=== PATIENT | female | born 1995 ===

== ENCOUNTER 2023-12-12 18:50 | Emergency (ER) | payer BC ==
[2023-12-12] MEDS: SODIUM CHLORIDE 0.9% 1,000 ML IV STA (19:47)
[2023-12-12 19:48] VITALS: RESP 18
--- NOTE | 2023-12-12 19:51 | ED ---
Seizure HPI - General Chief Complaint: Seizure Stated Complaint: Seizure Time Seen by Provider: 12/12/23 19:11 Source: patient, family, EMS Mode of arrival: EMS Limitations: language barrier - History of Present Illness Initial Comments: 28-year-old female with history of seizure disorder presenting with chief complaint of seizure. 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 States that the patient was complaining of a headache earlier today. This tends to be a sign that she may have a seizure. She took ibuprofen and went to go lay down. The was laying beside her when she started to seize. Patient does feel quite fatigued since the seizure. states that this is normal for her. However the patient is complaining of a severe headache, which is not normal for her. States that she may have a milder headache afterwards but this is much more intense than she is used to. It is generalized. Admits to nausea and dizziness. Denies numbness, tingling, weakness. Admits to muscle soreness. - Related Data Allergies Allergy/AdvReac Type Severity Reaction Status Date / Time Penicillins Allergy Intermediate Anaphylaxis Verified 12/12/23 19:44 Review of Systems ROS Statement: Those systems with pertinent positive or pertinent negative responses have been documented in the HPI. ROS Other: All systems not noted in ROS Statement are negative. Past Medical History Past Medical History: Seizure Disorder Additional Past Medical History / Comment(s): genital herpes History of Any Multi-Drug Resistant Organisms: None Reported Past Surgical History: Tubal Ligation Past Psychological History: No Psychological Hx Reported Smoking Status: Current every day smoker Past Alcohol Use History: Rare Past Drug Use History: None Reported General Exam Limitations: language barrier General appearance: alert, lethargic Head exam: Present: atraumatic, normocephalic Eye exam: Present: normal appearance, PERRL, EOMI Neck exam: Present: normal inspection Respiratory exam: Present: normal lung sounds bilaterally. Absent: respiratory distress, wheezes, rales, rhonchi, stridor Cardiovascular Exam: Present: regular rate, normal rhythm, normal heart sounds. Absent: systolic murmur, diastolic murmur, rubs, gallop, clicks Extremities exam: Present: normal inspection, full ROM Neurological exam: Present: alert, oriented X3 Expanded Cranial nerves: EOM's Intact: Normal Skin exam: Present: warm, dry Course Vital Signs 12/12/23 12/12/23 18:53 23:01 Temperature 98.2 F 98.1 F Pulse Rate 77 75 Respiratory 18 18 Rate Blood Pressure 128/91 113/70 O2 Sat by Pulse 98 100 Oximetry Medical Decision Making - Medical Decision Making Was pt. sent in by a medical professional or institution (MAX Daniels, EDUCATIONAL TECHNOLOGY COORDINATOR, urgent care, hospital, or skilled nursing...) When possible be specific @ -No Did you speak to anyone other than the patient for history (EMS, parent, family, police, friend...)? What history was obtained from this source @ -No Did you review nursing and triage notes (agree or disagree)? Why? @ -I reviewed and agree with nursing and triage notes Were old charts reviewed (outside hosp., previous admission, EMS record, old EKG, old radiological studies, urgent care reports/EKG's, skilled nursing records)? Report findings @ -No old charts were reviewed Differential Diagnosis (chest pain, altered mental status, abdominal pain women, abdominal pain men, vaginal bleeding, weakness, fever, dyspnea, syncope, headache, dizziness, GI bleed, back pain, seizure, CVA, palpatations, mental health, musculoskeletal)? @ -MDM Differential Seizure: Recurrent seizure disorder, febrile seizure, alcohol withdrawal, stimulants, meningitis, encephalitis, intercranial hemorrhage, intracranial tumor, stroke, eclampsia, thyrotoxicosis, hypocalcemia, hyponatremia, hypernatremia, hypomagnesemia, psychogenic this is not meant to be an all-inclusive list EKG interpreted by me (3pts min.). @ -EKG shows sinus bradycardia ventricular rate 54. DC interval 138. QRS 90. QT 438. QTc 423. X-rays interpreted by me (1pt min.). @ -None done CT interpreted by me (1pt min.). @ -CT of the brain shows no acute intracranial process U/S interpreted by me (1pt. min.). @ -None done What testing was considered but not performed or refused? (CT, X-rays, U/S, labs)? Why? @ -None What meds were considered but not given or refused? Why? @ -None Did you discuss the management of the patient with other professionals (professionals i.e. MAX Daniels, EDUCATIONAL TECHNOLOGY COORDINATOR, lab, RT, psych nurse, social security benefits interviewer, fire assistant, teacher, air force senior officer, binder caser)? Give summary @ -No Was smoking cessation discussed for >3mins.? @ -No Was critical care preformed (if so, how long)? @ -No Were there social determinants of health that impacted care today? How? (Homelessness, low income, unemployed, alcoholism, drug addiction, transportation, low edu. Level, literacy, decrease access to med. care, [facility], rehab)? @ -No Was there de-escalation of care discussed even if they declined (Discuss DNR or withdrawal of care, Hospice)? DNR status @ -No What co-morbidities impacted this encounter? (DM, HTN, Smoking, COPD, CAD, Cancer, CVA, ARF, Chemo, Hep., AIDS, mental health diagnosis, sleep apnea, morbid obesity)? @ -None Was patient admitted / discharged? Hospital course, mention meds given and route, prescriptions, significant lab abnormalities, going to OR and other perti nent info. @ -28-year-old female with history of seizure disorder presenting for evaluation post seizure. Patient's was concerned that she was complaining of a severe headache afterwards which is not normal for her. Patient only speaks Gambian, serves as parking manager. Labs are obtained which require no further action. Keppra level is sent out. Negative CT of the brain. Patient was given 1 g of Keppra IV. She was also given Toradol Reglan and IV fluids. On reassessment she reports improvement in her headache. Patient has been educated on today's findings. states that they are currently trying to schedule an appointment with a neurologist as she recently moved to the area. Discharged home. Follow-up with PCP. Report back to ER with any new or worsening symptoms. Discussed return parameters and answered all questions. Patient conveyed verbal understanding and agreed to the plan. I discussed this case in detail with my attending Dr. Urban Undiagnosed new problem with uncertain prognosis? @ -No Drug Therapy requiring intensive monitoring for toxicity (Heparin, Nitro, Insulin, Cardizem)? @ -No Were any procedures done? @ -No Diagnosis/symptom? @ -Recurrent seizure disorder Acute, or Chronic, or Acute on Chronic? @ -Acute on chronic Uncomplicated (without systemic symptoms) or Complicated (systemic symptoms)? @ -complicated Side effects of treatment? @ -No Exacerbation, Progression, or Severe Exacerbation? @ -No Poses a threat to life or bodily function? How? (Chest pain, [place], [place], pneumonia, PE, COPD, DKA, ARF, appy, cholecystitis, CVA, Diverticulitis, Homicidal, Suicidal, threat to staff... and all critical care pts) @ -Low likelihood - Lab Data Result diagrams: 12/12/23 21:07 12/12/23 21:07 Lab Results 12/12/23 12/12/23 12/12/23 Range/Units 21:07 21:07 21:07 WBC 11.4 H (3.8-10.6) k/uL RBC 3.91 (3.80-5.40) m/uL Hgb 11.9 (11.4-16.0) gm/dL Hct 35.2 (34.0-46.0) % MCV 90.0 (80.0-100.0) fL MCH 30.5 (25.0-35.0) pg MCHC 33.9 (31.0-37.0) g/dL RDW 14.1 (11.5-15.5) % Plt Count 250 (150-450) k/uL MPV 9.1 Neutrophils % 63 % Lymphocytes % 29 % Monocytes % 5 % Eosinophils % 1 % Basophils % 0 % Neutrophils # 7.2 (1.3-7.7) k/uL Lymphocytes # 3.3 (1.0-4.8) k/uL Monocytes # 0.5 (0-1.0) k/uL Eosinophils # 0.1 (0-0.7) k/uL Basophils # 0.1 (0-0.2) k/uL Sodium 136 L (137-145) mmol/L Potassium 3.8 (3.5-5.1) mmol/L Chloride 109 H (98-107) mmol/L Carbon Dioxide 21 L (22-30) mmol/L Anion Gap 6 mmol/L BUN 10 (7-17) mg/dL Creatinine 0.88 (0.52-1.04) mg/dL Est GFR (CKD-EPI)AfAm >90 (>60 ml/min/1.73 sqM) Est GFR (CKD-EPI)NonAf 89 (>60 ml/min/1.73 sqM) Glucose 90 (74-99) mg/dL Calcium 8.9 (8.4-10.2) mg/dL Magnesium 1.6 (1.6-2.3) mg/dL Total Bilirubin 0.3 (0.2-1.3) mg/dL AST 17 (14-36) U/L ALT 10 (4-34) U/L Alkaline Phosphatase 66 (38-126) U/L Total Protein 6.5 (6.3-8.2) g/dL Albumin 4.2 (3.5-5.0) g/dL Urine Color Urine Appearance (Clear) Urine pH (5.0-8.0) Ur Specific [place] (1.001-1.035) Urine Protein (Negative) Urine Glucose (UA) (Negative) Urine Ketones (Negative) Urine Blood (Negative) Urine Nitrite (Negative) Urine Bilirubin (Negative) Urine Urobilinogen (<2.0) mg/dL Ur Leukocyte Esterase (Negative) Urine RBC (0-5) /hpf Urine WBC (0-5) /hpf Ur Squamous Epith Cells (0-4) /hpf Amorphous Sediment (None) /hpf Urine Mucus (None) /hpf Urine HCG, Qual (Not Detectd) Urine Opiates Screen (NotDetected) Ur Oxycodone Screen (NotDetected) Urine Methadone Screen (NotDetected) Ur Barbiturates Screen (NotDetected) U Tricyclic Antidepress (NotDetected) Levetiracetam 45.8 (3.0-60.0) ug/mL Ur Phencyclidine Scrn (NotDetected) Ur Amphetamines Screen (NotDetected) U Methamphetamines Scrn (NotDetected) U Benzodiazepines Scrn (NotDetected) Urine Cocaine Screen (NotDetected) U Marijuana (THC) Screen (NotDetected) 12/12/23 12/12/23 Range/Units 21:20 21:20 WBC (3.8-10.6) k/uL RBC (3.80-5.40) m/uL Hgb (11.4-16.0) gm/dL Hct (34.0-46.0) % MCV (80.0-100.0) fL MCH (25.0-35.0) pg MCHC (31.0-37.0) g/dL RDW (11.5-15.5) % Plt Count (150-450) k/uL MPV Neutrophils % % Lymphocytes % % Monocytes % % Eosinophils % % Basophils % % Neutrophils # (1.3-7.7) k/uL Lymphocytes # (1.0-4.8) k/uL Monocytes # (0-1.0) k/uL Eosinophils # (0-0.7) k/uL Basophils # (0-0.2) k/uL Sodium (137-145) mmol/L Potassium (3.5-5.1) mmol/L Chloride (98-107) mmol/L Carbon Dioxide (22-30) mmol/L Anion Gap mmol/L BUN (7-17) mg/dL Creatinine (0.52-1.04) mg/dL Est GFR (CKD-EPI)AfAm (>60 ml/min/1.73 sqM) Est GFR (CKD-EPI)NonAf (>60 ml/min/1.73 sqM) Glucose (74-99) mg/dL Calcium (8.4-10.2) mg/dL Magnesium (1.6-2.3) mg/dL Total Bilirubin (0.2-1.3) mg/dL AST (14-36) U/L ALT (4-34) U/L Alkaline Phosphatase (38-126) U/L Total Protein (6.3-8.2) g/dL Albumin (3.5-5.0) g/dL Urine Color Light Yellow Urine Appearance Cloudy H (Clear) Urine pH 7.5 (5.0-8.0) Ur Specific [place] 1.018 (1.001-1.035) Urine Protein Negative (Negative) Urine Glucose (UA) Negative (Negative) Urine Ketones Trace H (Negative) Urine Blood Negative (Negative) Urine Nitrite Negative (Negative) Urine Bilirubin Negative (Negative) Urine Urobilinogen <2.0 (<2.0) mg/dL Ur Leukocyte Esterase Negative (Negative) Urine RBC <1 (0-5) /hpf Urine WBC 1 (0-5) /hpf Ur Squamous Epith Cells 4 (0-4) /hpf Amorphous Sediment Few H (None) /hpf Urine Mucus Rare H (None) /hpf Urine HCG, Qual Not Detected (Not Detectd) Urine Opiates Screen Not Detected (NotDetected) Ur Oxycodone Screen Not Detected (NotDetected) Urine Methadone Screen Not Detected (NotDetected) Ur Barbiturates Screen Not Detected (NotDetected) U Tricyclic Antidepress Not Detected (NotDetected) Levetiracetam (3.0-60.0) ug/mL Ur Phencyclidine Scrn Not Detected (NotDetected) Ur Amphetamines Screen Not Detected (NotDetected) U Methamphetamines Scrn Not Detected (NotDetected) U Benzodiazepines Scrn Detected H (NotDetected) Urine Cocaine Screen Not Detected (NotDetected) U Marijuana (THC) Screen Not Detected (NotDetected) Disposition Clinical Impression: Seizure disorder Disposition: HOME SELF-CARE Condition: Good Instructions (If sedation given, give patient instructions): Recurrent Seizures in Adults (ED) Additional Instructions: Follow-up with PCP and neurologist. Report back to ER with any new or worsening symptoms. Is patient prescribed a controlled substance at d/c from ED?: No Referrals: Jeff Roberto MD [Primary Care Provider] - 1-2 days Time of Disposition: 22:23
[2023-12-12] MEDS: levETIRAcetam IV 500 MG/5 ML VIAL IVP STA ×2 (20:35→20:44)
--- NOTE | 2023-12-12 20:40 | CT ---
EXAMINATION TYPE: CT brain wo con CT DLP: 1101.4 mGycm, Automated exposure control for dose reduction was used. DATE OF EXAM: 12/12/2023 8:28 PM COMPARISON: None. CLINICAL INDICATION:Female, 28 years old with history of seizure activity, GUVEARA, Seizure, headache, his tory of epilepsy TECHNIQUE: Brain: Axial CT images of the brain were obtained with coronal and sagittal reformats created and rev iewed. Contrast used: None. Oral contrast used: None. FINDINGS: Brain: Extra-axial spaces: No abnormal extra-axial fluid collections. Ventricular system: Within normal limits Cerebral parenchyma: No acute intraparenchymal hemorrhage or mass effect. The pal-white junction is well differentiated. Cerebellum: Unremarkable. Mass effect: No evidence of midline shift. Intracranial vasculature: unremarkable Soft tissues: Normal. Calvarium/osseous structures: No depressed skull fracture. Paranasal sinuses and mastoid air cells: Mild scattered paranasal sinus disease. Visualized orbits: Orbital contents are intact. IMPRESSION: No acute intracranial process.
[2023-12-12] MEDS: KETOROLAC 15 MG/ML 1 ML VIAL IVP STA (21:05)
[2023-12-12] MEDS: METOCLOPRAMIDE 5 MG/ML 2 ML VIAL IVP STA (21:07)
[2023-12-12 21:30] LABS: Basophils # (A) 0.1 k/uL (0-0.2); Basophils % (A) 0 %; Eosinophils # (A) 0.1 k/uL (0-0.7); Eosinophils % (A) 1 %; HCT 35.2 % (34.0-46.0); HGB 11.9 gm/dL (11.4-16.0); Lymphocytes # (A) 3.3 k/uL (1.0-4.8); Lymphocytes % (A) 29 %; MCH 30.5 pg (25.0-35.0); MCHC 33.9 g/dL (31.0-37.0); Mean Platelet Volume 9.1; Monocytes # (A) 0.5 k/uL (0-1.0); Monocytes % (A) 5 %; Neutrophils # (A) 7.2 k/uL (1.3-7.7); Neutrophils % (A) 63 %; Platelet Count 250 k/uL (150-450); RBC 3.91 m/uL (3.80-5.40); RDW 14.1 % (11.5-15.5); WBC 11.4 k/uL (3.8-10.6)
[2023-12-12 21:53] LABS: ALT 10 U/L (4-34); AST 17 U/L (14-36); African American GFR (CKD) >90 (>60 ml/min/1.73 sqM); Albumin 4.2 g/dL (3.5-5.0); Alkaline Phosphatase 66 U/L (38-126); Anion Gap 6 mmol/L; Blood Urea Nitrogen 10 mg/dL (7-17); Calcium 8.9 mg/dL (8.4-10.2); Carbon Dioxide 21 mmol/L (22-30); Chloride 109 mmol/L (98-107); Glucose 90 mg/dL (74-99); Magnesium 1.6 mg/dL (1.6-2.3); Non-African American GFR(CKD) 89 (>60 ml/min/1.73 sqM); Potassium 3.8 mmol/L (3.5-5.1); Sodium 136 mmol/L (137-145); Total Bilirubin 0.3 mg/dL (0.2-1.3); Total Protein 6.5 g/dL (6.3-8.2)
[2023-12-12 22:08] LABS: Amorphous Sediment,Urine Few /hpf; Appearance,Urine Cloudy (Clear); Bilirubin,Urine Negative (Negative); Blood,Urine Negative (Negative); Color,Urine Light Yellow; Glucose,Urine (UA) Negative (Negative); Ketones,Urine Trace (Negative); Leukocyte Esterase,Urine Negative (Negative); Mucus,Urine Rare /hpf; Nitrite,Urine Negative (Negative); PH, Urine 7.5 (5.0-8.0); Protein,Urine Negative (Negative); RBC,Urine <1 /hpf (0-5); Specific Gravity,Urine 1.018 (1.001-1.035); Squamous Epithelial Cell,Urine 4 /hpf (0-4); Urobilinogen,Urine <2.0 mg/dL (<2.0); WBC,Urine 1 /hpf (0-5)
[2023-12-12 22:10] LABS: Amphetamine Screen,Urine Not Detected (NotDetected); Barbiturate Screen,Urine Not Detected (NotDetected); Benzodiazepines Screen,Urine Detected (NotDetected); Cocaine Screen,Urine Not Detected (NotDetected); Methadone Screen, Urine Not Detected (NotDetected); Opiate Screen,Urine Not Detected (NotDetected); Oxycodone Screen, Urine Not Detected (NotDetected); Phencyclidine Screen,Urine Not Detected (NotDetected); Tricyclic Antidepressant,Urine Not Detected (NotDetected); Urn Cannabinoid Scrn Not Detected (NotDetected)
[2023-12-12 23:47] VITALS: BP 113/70; PULSE 75; TEMP 98.1
== END 2023-12-12 23:02 | disposition home or self-care (01) ==
LOC: EC 18:50
DX: G40.909 Epilepsy, unspecified, not intractable, without status epilepticus (principal); F17.200 Nicotine dependence, unspecified, uncomplicated; Z88.0 Allergy status to penicillin
CPT/HCPCS: 36415; 93005; 80053; 80177; 83735; 85025; 81001; 81025; 80306; 70450; 99285; 96374; 96375 ×2; 96361 ×2; J2765; J1953; J1885

== ENCOUNTER 2024-02-25 20:06 | Emergency (ER) | payer BC | END 2024-02-25 21:05 | disposition home or self-care (01) | LOC: EC 20:06 | DX: G40.909 Epilepsy, unspecified, not intractable, without status epilepticus (principal) | CPT/HCPCS: 99284 ==

== ENCOUNTER 2024-04-23 13:42 | Emergency (ER) | payer BC ==
--- NOTE | 2024-04-23 15:20 | ED ---
General Adult HPI - General Source: patient, EMS, educational sign language interpreter, RN notes reviewed, old records reviewed Mode of arrival: EMS Limitations: language barrier <Kai Carter - Last Filed: 04/23/24 20:42> <Russell Christie - Last Filed: 04/23/24 23:20> - General Chief complaint: Abdominal Pain Stated complaint: Nausea Time Seen by Provider: 04/23/24 14:55 - History of Present Illness Initial comments: Patient speaks Urdu and history is performed with the help of her son who is at bedside. Patient developed lower abdominal pain with associated nausea and vomiting which began today. Patient is scheduled to start her menstrual cycle tomorrow and has had similar symptoms with her menstrual cycle in the past. No vaginal bleeding. Dysuria. No fever. She has had multiple episodes of vomiting prior to arrival. (Kai Carter) - Related Data Home Medications Medication Instructions Recorded Confirmed Cranberry Fruit Extract [Cranberry] 500 mg PO DAILY 04/23/24 04/23/24 FLUoxetine HCL [PROzac] 40 mg PO DAILY 04/23/24 04/23/24 Fish Oil/Dha/Epa [Fish Oil 1,200 1 cap PO DAILY 04/23/24 04/23/24 mg Fish Oil] Multivitamins, Thera [Multivitamin 1 tab PO DAILY 04/23/24 04/23/24 (formulary)] OLANZapine [ZyPREXA] 5 mg PO HS 04/23/24 04/23/24 levETIRAcetam [Keppra] 1,000 mg PO Q12HR 04/23/24 04/23/24 Allergies Allergy/AdvReac Type Severity Reaction Status Date / Time Penicillins Allergy Intermediate Anaphylaxis Verified 04/23/24 17:46 Review of Systems ROS Other: All systems not noted in ROS Statement are negative. <Kai Carter - Last Filed: 04/23/24 20:42> ROS Other: All systems not noted in ROS Statement are negative. <Russell Christie - Last Filed: 04/23/24 23:20> ROS Statement: Those systems with pertinent positive or pertinent negative responses have been documented in the HPI. Past Medical History Past Medical History: Seizure Disorder Additional Past Medical History / Comment(s): genital herpes History of Any Multi-Drug Resistant Organisms: None Reported Past Surgical History: Tubal Ligation Past Psychological History: No Psychological Hx Reported Smoking Status: Current every day smoker Past Alcohol Use History: Rare Past Drug Use History: None Reported <Kai Carter - Last Filed: 04/23/24 20:42> General Exam Limitations: language barrier General appearance: alert, in distress Head exam: Present: atraumatic, normocephalic Eye exam: Present: normal appearance, PERRL ENT exam: Present: normal exam Neck exam: Present: normal inspection. Absent: tenderness, meningismus Respiratory exam: Present: normal lung sounds bilaterally. Absent: respiratory distress Cardiovascular Exam: Present: regular rate, normal rhythm GI/Abdominal exam: Present: soft, tenderness (Supra pubic). Absent: distended Neurological exam: Present: alert. Absent: motor sensory deficit Skin exam: Present: warm, dry, intact, normal color <Kai Carter - Last Filed: 04/23/24 20:42> Course Vital Signs 04/23/24 04/23/24 04/23/24 13:52 15:36 18:13 Temperature 97.2 F L 98.6 F 98.3 F Pulse Rate 85 56 L 79 Respiratory 20 18 18 Rate Blood Pressure 131/93 99/62 116/84 O2 Sat by Pulse 98 99 100 Oximetry 04/23/24 04/23/24 04/23/24 19:26 20:45 22:07 Temperature Pulse Rate 75 81 85 Respiratory 18 18 18 Rate Blood Pressure 119/87 118/91 102/68 O2 Sat by Pulse 100 100 100 Oximetry Medical Decision Making - Lab Data Result diagrams: 04/23/24 15:08 04/23/24 15:08 <Kai Carter - Last Filed: 04/23/24 20:42> - Lab Data Result diagrams: 04/23/24 15:08 04/23/24 15:08 <Russell Christie - Last Filed: 04/23/24 23:20> - Medical Decision Making Was pt. sent in by a medical professional or institution (, PA, WATER TAXI DRIVER, urgent care, hospital, or fci...) When possible be specific @ -No Did you speak to anyone other than the patient for history (EMS, parent, family, police, friend...)? What history was obtained from this source @Patient's who was able to translate. Did you review nursing and triage notes (agree or disagree)? Why? @ -I reviewed and agree with nursing and triage notes Were old charts reviewed (outside hosp., previous admission, EMS record, old EKG, old radiological studies, urgent care reports/EKG's, fci records)? Report findings @ -No old charts were reviewed Differential Abdominal Pain Women: Appendicitis, Cholecystitis, diverticulosis, ischemic bowel, pancreatitis, hepatitis, UTI, gastroenteritis, AAA, incarcerated hernia, bowel obstruction, constipation, inflammatory bowel, hepatitis, peptic ulcer disease, splenic infarction, perforated viscus, vulvitis, ovarian torsion, PID, kidney stone, placenta abruption, this is not meant to be an all-inclusive list EKG interpreted by me (3pts min.). @ -As above X-rays interpreted by me (1pt min.). @ -None done CT interpreted by me (1pt min.). @CT of the abdomen pelvis with contrast negative for acute findings, no appendicitis, no diverticulitis U/S interpreted by me (1pt. min.). @ -None done What testing was considered but not performed or refused? (CT, X-rays, U/S, labs)? Why? @ -None What meds were considered but not given or refused? Why? @ -None Did you discuss the management of the patient with other professionals (professionals i.e. , PA, WATER TAXI DRIVER, lab, RT, psych nurse, social sciences department chair, detective and intelligence analyst, teacher, customs and immigration officer, upper caser)? Give summary @ -No Was smoking cessation discussed for >3mins.? @ -No Was critical care preformed (if so, how long)? @ -No Were there social determinants of health that impacted care today? How? (Homelessness, low income, unemployed, alcoholism, drug addiction, transportation, low edu. Level, literacy, decrease access to med. care, snf, rehab)? @ -No Was there de-escalation of care discussed even if they declined (Discuss DNR or withdrawal of care, Hospice)? DNR status @ -No What co-morbidities impacted this encounter? (DM, HTN, Smoking, COPD, CAD, Cancer, CVA, ARF, Chemo, Hep., AIDS, mental health diagnosis, sleep apnea, morb id obesity)? @ -None Was patient admitted / discharged? Hospital course, mention meds given and rou te, prescriptions, significant lab abnormalities, going to OR and other pertinent info. @ -[28-year-old female with lower abdominal pain, pelvic pain. Urinalysis is negative for infection, patient is not currently . She has normal CBC, normal CMP. I did perform CT imaging in the emergency department. Imaging and laboratory testing unremarkable. Ultrasound has been ordered, pending results, care signed out at shift change. Undiagnosed new problem with uncertain prognosis? @ -No Drug Therapy requiring intensive monitoring for toxicity (Heparin, Nitro, Insulin, Cardizem)? @ -No Were any procedures done? @ -No Diagnosis/symptom? @Abdominal pain Acute, or Chronic, or Acute on Chronic? @Acute Uncomplicated (without systemic symptoms) or Complicated (systemic symptoms)? @ -Default Side effects of treatment? @ -No Exacerbation, Progression, or Severe Exacerbation? @ -No Poses a threat to life or bodily function? How? (Chest pain, [place], [place], pneumonia, PE, COPD, DKA, ARF, appy, cholecystitis, CVA, Diverticulitis, Homicidal, Suicidal, threat to staff... and all critical care pts) @ -No (Kai Carter) Patient care signed out to me by previous shift physician, Dr. Bustos at 9:00 PM. Briefly, patient is a 28-year-old female presents to the ER for abdominal pain. On CT there is concern of hemorrhagic cyst. Ultrasound was ordered. Pending ultrasound pelvis. Transvaginal ultrasound was performed and reviewed by myself showing left ovari an cyst.'s are within acceptable size limits. Evaluated bedside at 11:20 PM found to be stable condition. Patient discharged to home. (Russell Christie) - Lab Data Lab Results 04/23/24 04/23/24 04/23/24 Range/Units 15:08 15:08 15:08 WBC 10.8 H (3.8-10.6) k/uL RBC 4.23 (3.80-5.40) m/uL Hgb 13.6 (11.4-16.0) gm/dL Hct 40.2 (34.0-46.0) % MCV 95.2 (80.0-100.0) fL MCH 32.1 (25.0-35.0) pg MCHC 33.8 (31.0-37.0) g/dL RDW 12.2 (11.5-15.5) % Plt Count 284 (150-450) k/uL MPV 8.6 Neutrophils % 62 % Lymphocytes % 31 % Monocytes % 4 % Eosinophils % 1 % Basophils % 0 % Neutrophils # 6.7 (1.3-7.7) k/uL Lymphocytes # 3.4 (1.0-4.8) k/uL Monocytes # 0.4 (0-1.0) k/uL Eosinophils # 0.1 (0-0.7) k/uL Basophils # 0.1 (0-0.2) k/uL Sodium 139 (137-145) mmol/L Potassium 3.8 (3.5-5.1) mmol/L Chloride 106 (98-107) mmol/L Carbon Dioxide 24 (22-30) mmol/L Anion Gap 9 mmol/L BUN 8 (7-17) mg/dL Creatinine 0.59 (0.52-1.04) mg/dL Est GFR (CKD-EPI)AfAm >90 (>60 ml/min/1.73 sqM) Est GFR (CKD-EPI)NonAf >90 (>60 ml/min/1.73 sqM) Glucose 92 (74-99) mg/dL Plasma Lactic Acid Man 1.0 (0.7-2.0) mmol/L Calcium 9.8 (8.4-10.2) mg/dL Total Bilirubin 1.1 (0.2-1.3) mg/dL AST 28 (14-36) U/L ALT 18 (4-34) U/L Alkaline Phosphatase 60 (38-126) U/L Total Protein 7.6 (6.3-8.2) g/dL Albumin 4.8 (3.5-5.0) g/dL Amylase 210 H (30-110) U/L Lipase 47 (23-300) U/L Urine Color Urine Appearance (Clear) Urine pH (5.0-8.0) Ur Specific [place] (1.001-1.035) Urine Protein (Negative) Urine Glucose (UA) (Negative) Urine Ketones (Negative) Urine Blood (Negative) Urine Nitrite (Negative) Urine Bilirubin (Negative) Urine Urobilinogen (<2.0) mg/dL Ur Leukocyte Esterase (Negative) Urine HCG, Qual (Not Detectd) 04/23/24 04/23/24 Range/Units 17:47 17:47 WBC (3.8-10.6) k/uL RBC (3.80-5.40) m/uL Hgb (11.4-16.0) gm/dL Hct (34.0-46.0) % MCV (80.0-100.0) fL MCH (25.0-35.0) pg MCHC (31.0-37.0) g/dL RDW (11.5-15.5) % Plt Count (150-450) k/uL MPV Neutrophils % % Lymphocytes % % Monocytes % % Eosinophils % % Basophils % % Neutrophils # (1.3-7.7) k/uL Lymphocytes # (1.0-4.8) k/uL Monocytes # (0-1.0) k/uL Eosinophils # (0-0.7) k/uL Basophils # (0-0.2) k/uL Sodium (137-145) mmol/L Potassium (3.5-5.1) mmol/L Chloride (98-107) mmol/L Carbon Dioxide (22-30) mmol/L Anion Gap mmol/L BUN (7-17) mg/dL Creatinine (0.52-1.04) mg/dL Est GFR (CKD-EPI)AfAm (>60 ml/min/1.73 sqM) Est GFR (CKD-EPI)NonAf (>60 ml/min/1.73 sqM) Glucose (74-99) mg/dL Plasma Lactic Acid Man (0.7-2.0) mmol/L Calcium (8.4-10.2) mg/dL Total Bilirubin (0.2-1.3) mg/dL AST (14-36) U/L ALT (4-34) U/L Alkaline Phosphatase (38-126) U/L Total Protein (6.3-8.2) g/dL Albumin (3.5-5.0) g/dL Amylase (30-110) U/L Lipase (23-300) U/L Urine Color Light Yellow Urine Appearance Clear (Clear) Urine pH 6.5 (5.0-8.0) Ur Specific [place] 1.010 (1.001-1.035) Urine Protein Negative (Negative) Urine Glucose (UA) Negative (Negative) Urine Ketones 1+ H (Negative) Urine Blood Negative (Negative) Urine Nitrite Negative (Negative) Urine Bilirubin Negative (Negative) Urine Urobilinogen <2.0 (<2.0) mg/dL Ur Leukocyte Esterase Negative (Negative) Urine HCG, Qual Not Detected (Not Detectd) Disposition Is patient prescribed a controlled substance at d/c from ED?: No <Kai Carter - Last Filed: 04/23/24 20:42> Is patient prescribed a controlled substance at d/c from ED?: No Time of Disposition: 23:20 <Russell Christie - Last Filed: 04/23/24 23:20> Clinical Impression: Abdominal pain Disposition: HOME SELF-CARE Instructions (If sedation given, give patient instructions): Abdominal Pain (ED) Referrals: Chris Cohen MD [Primary Care Provider] - 1-2 days
[2024-04-23 15:26] LABS: ALT 18 U/L (4-34); AST 28 U/L (14-36); African American GFR (CKD) >90 (>60 ml/min/1.73 sqM); Albumin 4.8 g/dL (3.5-5.0); Alkaline Phosphatase 60 U/L (38-126); Amylase 210 U/L (30-110); Anion Gap 9 mmol/L; Blood Urea Nitrogen 8 mg/dL (7-17); Calcium 9.8 mg/dL (8.4-10.2); Carbon Dioxide 24 mmol/L (22-30); Chloride 106 mmol/L (98-107); Glucose 92 mg/dL (74-99); Lipase 47 U/L (23-300); Non-African American GFR(CKD) >90 (>60 ml/min/1.73 sqM); Potassium 3.8 mmol/L (3.5-5.1); Sodium 139 mmol/L (137-145); Total Bilirubin 1.1 mg/dL (0.2-1.3); Total Protein 7.6 g/dL (6.3-8.2)
[2024-04-23 15:37] VITALS: RESP 18
[2024-04-23 15:38] LABS: Basophils # (A) 0.1 k/uL (0-0.2); Basophils % (A) 0 %; Eosinophils # (A) 0.1 k/uL (0-0.7); Eosinophils % (A) 1 %; HCT 40.2 % (34.0-46.0); HGB 13.6 gm/dL (11.4-16.0); Lymphocytes # (A) 3.4 k/uL (1.0-4.8); Lymphocytes % (A) 31 %; MCH 32.1 pg (25.0-35.0); MCHC 33.8 g/dL (31.0-37.0); MCV 95.2 fL (80.0-100.0); Mean Platelet Volume 8.6; Monocytes # (A) 0.4 k/uL (0-1.0); Monocytes % (A) 4 %; Neutrophils # (A) 6.7 k/uL (1.3-7.7); Neutrophils % (A) 62 %; Platelet Count 284 k/uL (150-450); RBC 4.23 m/uL (3.80-5.40); RDW 12.2 % (11.5-15.5); WBC 10.8 k/uL (3.8-10.6)
[2024-04-23] MEDS: SODIUM CHLORIDE 0.9% 1,000 ML IV ONE (15:39)
[2024-04-23] MEDS: ONDANSETRON 4 MG/2 ML VIAL IVP STA ×2 (15:47→20:49)
[2024-04-23] MEDS: HYDROmorphone 0.5 MG/0.5 ML SYRINGE IVP STA ×2 (15:55→20:51)
[2024-04-23 18:52] LABS: Appearance,Urine Clear (Clear); Bilirubin,Urine Negative (Negative); Blood,Urine Negative (Negative); Color,Urine Light Yellow; Glucose,Urine (UA) Negative (Negative); Ketones,Urine 1+ (Negative); Leukocyte Esterase,Urine Negative (Negative); Nitrite,Urine Negative (Negative); PH, Urine 6.5 (5.0-8.0); Protein,Urine Negative (Negative); Urobilinogen,Urine <2.0 mg/dL (<2.0)
[2024-04-23] MEDS: KETOROLAC 15 MG/ML 1 ML VIAL IVP STA (19:27)
--- NOTE | 2024-04-23 20:27 | CT ---
EXAMINATION TYPE: CT abdomen pelvis w con CT DLP: 719.3 mGycm, Automated exposure control for dose reduction was used. DATE OF EXAM: 04/23/2024 7:19 PM COMPARISON: None. CLINICAL INDICATION:Female, 28 years old with history of lower ab pain; lower abdominal pain and naus ea/vomiting TECHNIQUE: Axial CT of the abdomen and pelvis. Sagittal and coronal reformats were created on a [employer] workstation. Contrast used:100ml mL of Isovue 370 with IV Contrast, (none if empty) Oral contrast used: without Oral Contrast (none if empty) FINDINGS: LOWER CHEST: Unremarkable ABDOMEN LIVER: Diffusely hypoattenuating parenchyma suggesting mild steatosis. No mass. GALLBLADDER AND BILE DUCTS: Unremarkable gallbladder. No biliary ductal dilatation. PANCREAS: Unremarkable. SPLEEN: Unremarkable. ADRENAL GLANDS: Unremarkable. KIDNEYS AND URETERS: Kidneys enhance symmetrically. No evidence of hydronephrosis or visible renal ca lculus. The ureters are unremarkable. PELVIS BLADDER: Unremarkable REPRODUCTIVE: Prominent central uterine low-attenuation likely normal physiologic changes in a reprod uctive aged patient. Small peripherally increased attenuation cystic lesion of the left ovary, likely hemorrhagic cyst or involuting follicle. No clearly concerning lesion. ABDOMEN & PELVIS STOMACH AND BOWEL: Stomach and small bowel are nondistended, no evidence of obstruction. The append ix appears within normal limits. There is some stool and gas seen throughout the colon with no focal acute abnormality shown. PERITONEUM/RETROPERITONEUM: Trace free fluid in the pelvis. VASCULATURE: Aorta and major branches are grossly unremarkable. No AAA. LYMPH NODES: No enlarged nodes by CT size criteria. SOFT TISSUE/ABDOMINAL WALL: Unremarkable MUSCULOSKELETAL: No acute osseous abnormalities. IMPRESSION: No acute pathology demonstrated in the abdomen or pelvis. Physiologic pelvic findings as above. [facility], , 04/23/2024 8:25 PM
--- NOTE | 2024-04-23 23:07 | US ---
EXAMINATION TYPE: US transvaginal DATE OF EXAM: 04/23/2024 COMPARISON: CT today CLINICAL INDICATION: Female, 28 years old with history of pelvic pain; Patient states pelvic pain. Hx BTL. Patient about to start cycle tmrw TECHNIQUE: Transvaginal (TV). Transvaginal sonographic images were medically necessary to better as sess the following anatomy: Ovaries FINDINGS: All of the below findings/conclusions presume a negative beta-hCG level in this reproductive age shay ent. Date of LMP: 03/25/2024 EXAM MEASUREMENTS: Uterus: 9.3 x 5.0 x 5.9 cm Endometrial Stripe: 2.0 cm Right Ovary: 2.8 x 1.5 x 1.7 cm Left Ovary: 3.4 x 2.5 x 2.7 cm 1. Uterus: Anteverted wnl as best seen 2. Endometrium: Thickened, slightly heterogeneous with vascularity seen within 3. Right Ovary: wnl as best seen 4. Left Ovary: There is a 1.3 x 1.3 x 1.2cm hypoechoic area with peripheral doppler flow seen, proba ble corpus luteum vs other. There is a also a 4mm calcification seen within. Spectral, color and waveform doppler imaging shows good arterial and venous flow within the ovaries ; there is no evidence for ovarian torsion. 5. Bilateral Adnexa: wnl 6. Posterior cul-de-sac: wnl IMPRESSION: 1. Anteverted uterus with thickened slightly heterogeneous endometrium with vascularity seen within. Could be physiologic, correlate with phase of menstruation. 2. Right ovary appears to be within normal limits. 3. Left ovarian nodule, may represent corpus luteum or hemorrhagic cyst. [facility], , 04/23/2024 11:05 PM
[2024-04-23] MEDS: ACET/COD 300 MG/30 MG STARTER PACK 6 TAB BTL PO STA (23:26)
[2024-04-23 23:33] VITALS: BP 108/72; PULSE 78; TEMP 98.2
== END 2024-04-23 23:33 | disposition home or self-care (01) ==
LOC: EC 13:42
CPT/HCPCS: 36415; 74177; 76830; 80053; 81003; 81025; 82150; 83605; 83690; 85025; 93975; 96361; 96374; 96375; 96376; 99285

== ENCOUNTER 2024-09-10 16:53 | Emergency (ER) | payer BC ==
[2024-09-10 17:23] VITALS: TEMP 98
--- NOTE | 2024-09-10 17:24 | ED ---
Headache HPI - General Chief Complaint: Headache Stated Complaint: syncope, headache Time Seen by Provider: 09/10/24 17:18 Source: patient, family, RN notes reviewed Mode of arrival: wheelchair Limitations: language barrier - History of Present Illness Initial Comments: This is a 28-year-old female who presents to the emergency department for a headache. Patient is primarily [place]-speaking and her is translating for her. She states that it started yesterday when she was cooking dinner. The headache was a gradual onset and since then it seems to be getting worse. States that this is encompassing most of her head, she cannot localize it anywhere in particular. States that her eyes hurt as well. She has associated nausea and both light and sound sensitivity. She went to urgent care earlier today and was given a shot of Toradol, however it was only effective for around 20 minutes. She does have a history of headaches, however they are not typically this severe. MD Complaint: headache - Related Data Home Medications Medication Instructions Recorded Confirmed Cranberry Fruit Extract [Cranberry] 500 mg PO DAILY 04/23/24 04/23/24 FLUoxetine HCL [PROzac] 40 mg PO DAILY 04/23/24 04/23/24 Fish Oil/Dha/Epa [Fish Oil 1,200 1 cap PO DAILY 04/23/24 04/23/24 mg Fish Oil] Multivitamins, Thera [Multivitamin 1 tab PO DAILY 04/23/24 04/23/24 (formulary)] OLANZapine [ZyPREXA] 5 mg PO HS 04/23/24 04/23/24 levETIRAcetam [Keppra] 1,000 mg PO Q12HR 04/23/24 04/23/24 Previous Rx's Medication Instructions Recorded Ketorolac [Toradol] 10 mg PO Q6HR PRN #15 tab 09/10/24 Ondansetron Odt [Zofran Odt] 4 mg PO Q8HR PRN #20 tab 09/10/24 Prochlorperazine [Compazine] 10 mg PO Q6H PRN #20 tab 09/10/24 SUMAtriptan succinate 100 mg PO DIRECTED PRN #20 09/10/24 tablet Allergies Allergy/AdvReac Type Severity Reaction Status Date / Time Penicillins Allergy Intermediate Anaphylaxis Verified 04/23/24 17:46 Review of Systems ROS Statement: Those systems with pertinent positive or pertinent negative responses have been documented in the HPI. ROS Other: All systems not noted in ROS Statement are negative. Past Medical History Past Medical History: Seizure Disorder Additional Past Medical History / Comment(s): genital herpes History of Any Multi-Drug Resistant Organisms: None Reported Past Surgical History: Tubal Ligation Past Psychological History: No Psychological Hx Reported Smoking Status: Current every day smoker Past Alcohol Use History: Rare Past Drug Use History: None Reported General Exam Limitations: no limitations General appearance: alert, in no apparent distress Head exam: Present: atraumatic, normocephalic, normal inspection Eye exam: Present: normal appearance, PERRL, EOMI. Absent: scleral icterus, conjunctival injection, periorbital swelling Respiratory exam: Present: normal lung sounds bilaterally. Absent: respiratory distress, wheezes, rales, rhonchi, stridor Cardiovascular Exam: Present: regular rate, normal rhythm, normal heart sounds. Absent: systolic murmur, diastolic murmur, rubs, gallop, clicks Neurological exam: Present: alert, oriented X3, CN II-XII intact Expanded Cerebellar function: Finger to Nose: Normal, Heel to Cruz: Normal, Romberg: Normal Motor strength exam: RUE: 5, LUE: 5, RLE: 5, LLE: 5 Psychiatric exam: Present: normal affect, normal mood Skin exam: Present: warm, dry, intact, normal color. Absent: rash Course Vital Signs 09/10/24 09/10/24 09/10/24 17:17 19:23 19:43 Temperature 98.0 F Pulse Rate 72 78 66 Respiratory 17 15 17 Rate Blood Pressure 115/82 112/63 94/55 O2 Sat by Pulse 98 98 98 Oximetry 09/10/24 21:00 Temperature Pulse Rate 71 Respiratory 16 Rate Blood Pressure 90/59 O2 Sat by Pulse 97 Oximetry Medical Decision Making - Medical Decision Making This is a 28-year-old female who presents to the emergency department for a headache. Was pt. sent in by a medical professional or institution? @ -No Did you speak to anyone other than the patient for history? @ - translates most of the history due to language barrier Did you review nursing and triage notes? @ -Yes, and I agree, it is accurate with regards to the patient's symptoms. Were old charts reviewed? @ -No Differential Diagnosis? @ -Differential Headache: Migraine, tension, cluster, carbon monoxide, central venous thrombosis, pension karma temporal arteritis, acute closure glaucoma, intercranial hemorrhage, mastoiditis, sinusitis, head injury, this is not meant to be an all-inclusive list. EKG interpreted by me (3pts min.)? @ -Not obtained X-rays interpreted by me (1pt min.)? @ -Not obtained CT interpreted by me (1pt min.)? @ -CT scan of the brain obtained. My interpretation identifies no evidence of an acute intracranial hemorrhage. U/S interpreted by me (1pt. min.)? @ -Not obtained What testing was considered but not performed? (CT, X-rays, U/S, labs)? Why? @ -None What meds were considered but not given? Why? @ -None Did you discuss the management of the patient with other professionals? @ -No Did you reconcile home meds? @ -No Was smoking cessation discussed for >3mins.? @ -No Was critical care preformed (if so, how long)? @ -No Were there social determinants of health that impacted care today? How? (Homelessness, low income, unemployed, alcoholism, drug addiction, transporta tion, low edu. Level, literacy, decrease access to med. care, retirement, rehab)? @ -No Was there de-escalation of care discussed even if they declined? (Discuss DNR or withdrawal of care, Hospice)? @ -No What co-morbidities impacted this encounter? (DM, HTN, Smoking, COPD, CAD, Cancer, CVA, Hep., AIDS, mental health diagnosis, sleep apnea, morbid obesity)? @ -None Was patient admitted / discharged? @ -Discharged. Lab work obtained and found to be unremarkable. Given that this was worse than most headaches, CT scan of the brain was obtained which revealed no acute process. She was given a migraine cocktail consisting of Toradol, Decadron, Compazine, and Benadryl. She had resolution of the headache afterwards and was tolerating oral intake. States that she overall felt significantly improved. Prescription for Toradol, Compazine, Zofran, and sumatriptan provided with dosing instructions reviewed. Advised follow-up with her PCP for reevaluation. Patient discharged home in stable condition. Case discussed with ED attending, Dr. Light. Return precautions reviewed in depth, the patient is instructed to return to the emergency department with any new, worsening, or concerning symptoms. Patient verbalized understanding. Undiagnosed new problem with uncertain prognosis? @ -None Drug Therapy requiring intensive monitoring for toxicity (Heparin, Nitro, In sulin, Cardizem)? @ -None Were any procedures done? @ -None Diagnosis/symptom? @ -Headache Acute, or Chronic, or Acute on Chronic? @ -Acute Uncomplicated (without systemic symptoms) or Complicated (systemic symptoms)? @ -Uncomplicated Side effects of treatment? @ -None Exacerbation, Progression, or Severe Exacerbation] @ -Not applicable Poses a threat to life or bodily function? @ -No - Lab Data Result diagrams: 09/10/24 18:53 09/10/24 18:53 Lab Results 09/10/24 09/10/24 09/10/24 Range/Units 18:53 18:53 19:00 WBC 8.8 (3.8-10.6) k/uL RBC 4.25 (3.80-5.40) m/uL Hgb 13.4 (11.4-16.0) gm/dL Hct 40.6 (34.0-46.0) % MCV 95.6 (80.0-100.0) fL MCH 31.5 (25.0-35.0) pg MCHC 33.0 (31.0-37.0) g/dL RDW 12.1 (11.5-15.5) % Plt Count 267 (150-450) k/uL MPV 9.2 Neutrophils % 53 % Lymphocytes % 40 % Monocytes % 3 % Eosinophils % 1 % Basophils % 1 % Neutrophils # 4.7 (1.3-7.7) k/uL Lymphocytes # 3.6 (1.0-4.8) k/uL Monocytes # 0.3 (0-1.0) k/uL Eosinophils # 0.1 (0-0.7) k/uL Basophils # 0.0 (0-0.2) k/uL Sodium 137 (137-145) mmol/L Potassium 4.0 (3.5-5.1) mmol/L Chloride 103 (98-107) mmol/L Carbon Dioxide 24 (22-30) mmol/L Anion Gap 10 mmol/L BUN 8 (7-17) mg/dL Creatinine 0.64 (0.52-1.04) mg/dL Est GFR (CKD-EPI)AfAm >90 (>60 ml/min/1.73 sqM) Est GFR (CKD-EPI)NonAf >90 (>60 ml/min/1.73 sqM) Glucose 74 (74-99) mg/dL Plasma Lactic Acid Man 0.9 (0.7-2.0) mmol/L Calcium 9.4 (8.4-10.2) mg/dL Magnesium 1.8 (1.6-2.3) mg/dL Total Bilirubin 0.7 (0.2-1.3) mg/dL AST 30 (14-36) U/L ALT 16 (4-34) U/L Alkaline Phosphatase 46 (38-126) U/L Total Protein 7.1 (6.3-8.2) g/dL Albumin 4.4 (3.5-5.0) g/dL HCG, Qual Not Detected - Radiology Data Radiology results: report reviewed, image reviewed Disposition Clinical Impression: Headache Disposition: HOME SELF-CARE Instructions (If sedation given, give patient instructions): Acute Headache (ED) Additional Instructions: Return to the emergency department with any new, worsening, or concerning symptoms. If the headache returns, try taking a sumatriptan tablet. You can repeat the dose in 2 hours if symptoms persist. Do not take more than 2 tablets in 24 hours. Take the Toradol with Tylenol as needed for pain relief. If you choose to take the Toradol, do not take any other anti-inflammatories such as ibuprofen, take one or the other. The Compazine can be taken up to every 6 hours to help with both nausea and headaches. The Zofran can be taken up to every 8 hours just for nausea and vomiting. Follow up with your primary care provider in 1-2 days. Prescriptions: Prochlorperazine [Compazine] 10 mg PO Q6H PRN #20 tab PRN Reason: Nausea And Vomiting SUMAtriptan succinate 100 mg PO DIRECTED PRN #20 tablet PRN Reason: Migraine Headache Ketorolac [Toradol] 10 mg PO Q6HR PRN #15 tab PRN Reason: Pain Ondansetron Odt [Zofran Odt] 4 mg PO Q8HR PRN #20 tab PRN Reason: Nausea And Vomiting Is patient prescribed a controlled substance at d/c from ED?: No Referrals: Chris Cohen MD [Primary Care Provider] - 1-2 days Time of Disposition: 21:08
--- NOTE | 2024-09-10 18:04 | CT ---
EXAMINATION TYPE: CT brain wo con CT DLP: 1096.4 mGycm, Automated exposure control for dose reduction was used. DATE OF EXAM: 09/10/2024 5:59 PM COMPARISON: Prior CT Brain from 12/12/2023 . CLINICAL INDICATION:Female, 28 years old with history of Headache, migraine TECHNIQUE: Brain: Multiple axial CT images of the brain were obtained without IV contrast. . Coronal and sagitta l reformats reviewed. FINDINGS: Brain: Extra-axial spaces: No abnormal extra-axial fluid collections. Ventricular system: Within normal limits Cerebral parenchyma: No acute intraparenchymal hemorrhage or mass effect. The pal-white junction is well differentiated. Cerebellum: Unremarkable. Mass effect: No evidence of midline shift. Intracranial vasculature: unremarkable Soft tissues: Normal. Calvarium/osseous structures: No depressed skull fracture. Paranasal sinuses and mastoid air cells: Clear Visualized orbits: Orbital contents are intact. IMPRESSION: No acute intracranial process. [facility], , 09/10/2024 6:02 PM
[2024-09-10] MEDS: SODIUM CHLORIDE 0.9% 1,000 ML IV STA (19:08)
[2024-09-10] MEDS: PROCHLORPERAZINE INJ 10 MG/2 ML VIAL IVP STA (19:08)
[2024-09-10] MEDS: KETOROLAC 15 MG/ML 1 ML VIAL IVP STA (19:09)
[2024-09-10] MEDS: diphenhydrAMINE 50 MG/ML 1 ML VIAL IVP STA (19:10)
[2024-09-10] MEDS: DEXAMETHASONE SOD PHOSPHATE 10 MG/ML 1 ML VIAL IVP STA (19:16)
[2024-09-10 19:22] LABS: Basophils % (A) 1 %; Eosinophils # (A) 0.1 k/uL (0-0.7); Eosinophils % (A) 1 %; HCT 40.6 % (34.0-46.0); HGB 13.4 gm/dL (11.4-16.0); Lymphocytes # (A) 3.6 k/uL (1.0-4.8); Lymphocytes % (A) 40 %; MCH 31.5 pg (25.0-35.0); MCV 95.6 fL (80.0-100.0); Mean Platelet Volume 9.2; Monocytes # (A) 0.3 k/uL (0-1.0); Monocytes % (A) 3 %; Neutrophils # (A) 4.7 k/uL (1.3-7.7); Neutrophils % (A) 53 %; Platelet Count 267 k/uL (150-450); RBC 4.25 m/uL (3.80-5.40); RDW 12.1 % (11.5-15.5); WBC 8.8 k/uL (3.8-10.6)
[2024-09-10 19:40] LABS: ALT 16 U/L (4-34); AST 30 U/L (14-36); African American GFR (CKD) >90 (>60 ml/min/1.73 sqM); Albumin 4.4 g/dL (3.5-5.0); Alkaline Phosphatase 46 U/L (38-126); Anion Gap 10 mmol/L; Blood Urea Nitrogen 8 mg/dL (7-17); Calcium 9.4 mg/dL (8.4-10.2); Carbon Dioxide 24 mmol/L (22-30); Chloride 103 mmol/L (98-107); Glucose 74 mg/dL (74-99); Magnesium 1.8 mg/dL (1.6-2.3); Non-African American GFR(CKD) >90 (>60 ml/min/1.73 sqM); Sodium 137 mmol/L (137-145); Total Bilirubin 0.7 mg/dL (0.2-1.3); Total Protein 7.1 g/dL (6.3-8.2)
[2024-09-10 19:45] LABS: HCG,Qualitative Serum Not Detected
[2024-09-10] MEDS: SUMAtriptan succinate 50 MG TAB PO STA (21:00)
[2024-09-10 21:01] VITALS: BP 90/59; PULSE 71; RESP 16
== END 2024-09-10 21:16 | disposition home or self-care (01) ==
LOC: EC 16:53
DX: G43.909 Migraine, unspecified, not intractable, without status migrainosus (principal); F17.200 Nicotine dependence, unspecified, uncomplicated; Z88.0 Allergy status to penicillin
CPT/HCPCS: 36415; 80053; 83605; 83735; 85025; 84703; 70450; 99284; 96374; 96375; 96361; J1200; J0780; J1100; J1885

== ENCOUNTER 2025-01-16 21:21 | Emergency (ER) | payer BC ==
[2025-01-16 21:31] VITALS: TEMP 98
--- NOTE | 2025-01-16 21:55 | ED ---
GI Bleed HPI - General Chief complaint: GI Bleed Stated complaint: Blood in Stool,Vomiting Time Seen by Provider: 01/16/25 21:53 Source: family, RN notes reviewed Mode of arrival: ambulatory Limitations: language barrier - History of Present Illness Initial comments: 29-year-old female presenting for nausea/vomiting/diarrhea. Patient speaks limited Yemeni, is at bedside who provides most of history. Patient has been suffering from intermittent abdominal pain and diarrhea over the past month. She did have an endoscopy and was told she had H. pylori and was given the antibiotics that she took to completion. Patient and her were visiting family in [place] and several days ago had sudden onset nausea, vomiting, and diarrhea. Returned from [place] earlier today. Describes intermittent abdominal cramps as twisting/turning pains mostly after she eats. States there are streaks of bright red blood in the diarrhea however patient is also on her menstrual cycle. - Related Data Home Medications Medication Instructions Recorded Confirmed Cranberry Fruit Extract [Cranberry] 500 mg PO DAILY 04/23/24 04/23/24 FLUoxetine HCL [PROzac] 40 mg PO DAILY 04/23/24 04/23/24 Fish Oil/Dha/Epa [Fish Oil 1,200 1 cap PO DAILY 04/23/24 04/23/24 mg Fish Oil] Multivitamins, Thera [Multivitamin 1 tab PO DAILY 04/23/24 04/23/24 (formulary)] OLANZapine [ZyPREXA] 5 mg PO HS 04/23/24 04/23/24 levETIRAcetam [Keppra] 1,000 mg PO Q12HR 04/23/24 04/23/24 Previous Rx's Medication Instructions Recorded Ketorolac [Toradol] 10 mg PO Q6HR PRN #15 tab 09/10/24 Ondansetron Odt [Zofran Odt] 4 mg PO Q8HR PRN #20 tab 09/10/24 Prochlorperazine [Compazine] 10 mg PO Q6H PRN #20 tab 09/10/24 SUMAtriptan succinate 100 mg PO DIRECTED PRN #20 09/10/24 tablet Ondansetron Odt [Zofran Odt] 4 mg PO Q8HR PRN #10 tab 01/17/25 Sulfamethox-Tmp 800-160Mg [Bactrim 1 each PO Q12HR 7 Days #14 tab 01/17/25 Ds] Allergies Allergy/AdvReac Type Severity Reaction Status Date / Time Penicillins Allergy Intermediate Anaphylaxis Verified 01/16/25 21:31 Review of Systems ROS Statement: Those systems with pertinent positive or pertinent negative responses have been documented in the HPI. ROS Other: All systems not noted in ROS Statement are negative. Past Medical History Past Medical History: Seizure Disorder Additional Past Medical History / Comment(s): genital herpes History of Any Multi-Drug Resistant Organisms: None Reported Past Surgical History: Tubal Ligation Past Psychological History: No Psychological Hx Reported Smoking Status: Current every day smoker Past Alcohol Use History: Rare Past Drug Use History: None Reported General Exam - General Exam Comments Initial Comments: Visual Physical Exam Vital signs reviewed General: Well-appearing, nontoxic, no acute distress. Head: Normocephalic, atraumatic Eyes: PERRLA, EOMI ENT: Airway patent Chest: Nonlabored breathing Skin: No visual rash, normal skin tone Neuro: Alert and oriented 3 Musculoskeletal: No gross abnormalities Limitations: language barrier General appearance: alert, in no apparent distress Head exam: Present: atraumatic, normocephalic, normal inspection GI/Abdominal exam: Present: soft, normal bowel sounds. Absent: distended, tenderness, guarding, rebound, rigid Neurological exam: Present: alert, oriented X3 Psychiatric exam: Present: normal affect, normal mood Skin exam: Present: warm, dry, intact, normal color. Absent: rash Course Vital Signs 01/16/25 01/17/25 01/17/25 21:29 01:00 01:36 Temperature 98 F Pulse Rate 63 73 79 Respiratory 18 19 13 Rate Blood Pressure 132/84 125/97 125/97 O2 Sat by Pulse 99 96 100 Oximetry 01/17/25 01/17/25 02:17 03:52 Temperature Pulse Rate 72 72 Respiratory 15 20 Rate Blood Pressure 130/91 112/72 O2 Sat by Pulse 100 96 Oximetry Medical Decision Making - Medical Decision Making I completed the quick note portion of this chart signed Charlene Maguire PA-C Was pt. sent in by a medical professional or institution ([facility], [facility], urgent care, hospital, or longterm...) When possible be specific @ -[No] Did you speak to anyone other than the patient for history (EMS, parent, family, police, friend...)? What history was obtained from this source @ - provided history as patient is mostly non-Yemeni speaking Did you review nursing and triage notes (agree or disagree)? Why? @ -[I reviewed and agree with nursing and triage notes] Were old charts reviewed (outside hosp., previous admission, EMS record, old EKG, old radiological studies, urgent care reports/EKG's, longterm records)? Report findings @ -[No old charts were reviewed] Differential Diagnosis (chest pain, altered mental status, abdominal pain women, abdominal pain men, vaginal bleeding, weakness, fever, dyspnea, syncope, headache, dizziness, GI bleed, back pain, seizure, CVA, palpatations, mental health, musculoskeletal)? @ -Differential Abdominal Pain Women: Appendicitis, Cholecystitis, diverticulosis, ischemic bowel, pancreatitis, hepatitis, UTI, gastroenteritis, AAA, incarcerated hernia, bowel obstruction, constipation, inflammatory bowel, hepatitis, peptic ulcer disease, splenic infarction, perforated viscus, vulvitis, ovarian torsion, PID, kidney stone, placenta abruption, this is not meant to be an all-inclusive list EKG interpreted by me (3pts min.). @ -None X-rays interpreted by me (1pt min.). @ -KUB reveals no acute disease CT interpreted by me (1pt min.). @ -[None done] U/S interpreted by me (1pt. min.). @ -[None done] What testing was considered but not performed or refused? (CT, X-rays, U/S, labs)? Why? @ -[None] What meds were considered but not given or refused? Why? @ -[None] Did you discuss the management of the patient with other professionals (professionals i.e. , PA, [facility], lab, RT, psych nurse, propagation worker, hotel security officer, teacher, transportation officer, caser)? Give summary @ -[No] Was smoking cessation discussed for >3mins.? @ -[No] Was critical care preformed (if so, how long)? @ -[No] Were there social determinants of health that impacted care today? How? (Homelessness, low income, unemployed, alcoholism, drug addiction, transportation, low edu. Level, literacy, decrease access to med. care, care home, rehab)? @ -[No] Was there de-escalation of care discussed even if they declined (Discuss DNR or withdrawal of care, Hospice)? DNR status @ -[No] What co-morbidities impacted this encounter? (DM, HTN, Smoking, COPD, CAD, Cancer, CVA, ARF, Chemo, Hep., AIDS, mental health diagnosis, sleep apnea, morbid obesity)? @ -[None] Was patient admitted / discharged? Hospital course, mention meds given and route, prescriptions, significant lab abnormalities, going to OR and other pertinent info. @ -Discharge. 29-year-old female presenting for nausea/vomiting/diarrhea after recent travel to [place]. Patient is afebrile. Overall well-appearing. Abdomen soft and nonsurgical. Provided with IV fluids, Bentyl, and Zofran. Lab work remarkable for white blood cell count of 10 likely reactive from vomiting. No lactic acidosis. Patient is mildly acidotic CO2 19 likely due to vomiting and diarrhea. KUB unremarkable. Discussed diagnosis of traveler's diarrhea. Prescribed outpatient course of Bactrim as well as Zofran for nausea as needed. Appropriate return precautions and supportive care discussed. Advised to follow-up with PCP on Monday for reevaluation. Case was discussed with my ED attending Dr. Light Undiagnosed new problem with uncertain prognosis? @ -[No] Drug Therapy requiring intensive monitoring for toxicity (Heparin, Nitro, Insulin, Cardizem)? @ -[No] Were any procedures done? @ -[No] Diagnosis/symptom? @ -Traveler's diarrhea Acute, or Chronic, or Acute on Chronic? @ -Acute Uncomplicated (without systemic symptoms) or Complicated (systemic symptoms)? @ -Complicated Side effects of treatment? @ -[No] Exacerbation, Progression, or Severe Exacerbation? @ -[No] Poses a threat to life or bodily function? How? (Chest pain, USA, NM, pneumonia, PE, COPD, DKA, ARF, appy, cholecystitis, CVA, Diverticulitis, Homicidal, Suicidal, threat to staff... and all critical care pts) @ -Not at this time - Lab Data Result diagrams: 01/16/25 22:07 01/16/25 22:11 Lab Results 01/16/25 01/16/25 01/16/25 Range/Units 22:07 22:11 22:11 WBC 10.47 H (4.50-10.00) 10*3/uL RBC 4.29 (4.10-5.20) 10*6/uL Hgb 13.8 (12.0-15.0) g/dL Hct 40.4 (37.2-46.3) % MCV 94.2 (80.0-97.0) fL MCH 32.2 H (27.0-32.0) pg MCHC 34.2 (32.0-37.0) g/dL Plt Count 261 (140-440) 10*3/uL MPV 12.1 (9.5-12.2) fL Immature Gran % (Auto) 0.3 % Neutrophils % 59.9 % Lymphocytes % 32.7 % Monocytes % 5.5 % Eosinophils % 1.1 % Basophils % 0.5 % Immature Gran # 0.03 (0.00-0.04) 10*3/uL Neutrophils # 6.27 (1.80-7.70) 10*3/uL Lymphocytes # 3.42 (0.90-5.00) 10*3/uL Monocytes # 0.58 (0.20-1.00) 10*3/uL Eosinophils # 0.12 (0.04-0.35) 10*3/uL Basophils # 0.05 (0.00-0.10) 10*3/uL PT 10.9 (10.0-12.5) sec INR 1.0 (<1.2) APTT 23.5 (22.0-30.0) sec Sodium 140 (137-145) mmol/L Potassium 4.2 (3.5-5.1) mmol/L Chloride 106 (98-107) mmol/L Carbon Dioxide 19 L (22-30) mmol/L Anion Gap 15 mmol/L BUN 2 L (7-17) mg/dL Creatinine 0.54 (0.52-1.04) mg/dL Est GFR (CKD-EPI)AfAm >90 (>60 ml/min/1.73 sqM) Est GFR (CKD-EPI)NonAf >90 (>60 ml/min/1.73 sqM) Glucose 86 (74-99) mg/dL Plasma Lactic Acid Man (0.7-2.0) mmol/L Calcium 10.4 H (8.4-10.2) mg/dL Magnesium 1.7 (1.6-2.3) mg/dL Total Bilirubin 0.7 (0.2-1.3) mg/dL AST 26 (14-36) U/L ALT 17 (4-34) U/L Alkaline Phosphatase 50 (38-126) U/L Total Protein 7.3 (6.3-8.2) g/dL Albumin 4.7 (3.5-5.0) g/dL Lipase 39 (23-300) U/L 01/17/25 Range/Units 01:54 WBC (4.50-10.00) 10*3/uL RBC (4.10-5.20) 10*6/uL Hgb (12.0-15.0) g/dL Hct (37.2-46.3) % MCV (80.0-97.0) fL MCH (27.0-32.0) pg MCHC (32.0-37.0) g/dL Plt Count (140-440) 10*3/uL MPV (9.5-12.2) fL Immature Gran % (Auto) % Neutrophils % % Lymphocytes % % Monocytes % % Eosinophils % % Basophils % % Immature Gran # (0.00-0.04) 10*3/uL Neutrophils # (1.80-7.70) 10*3/uL Lymphocytes # (0.90-5.00) 10*3/uL Monocytes # (0.20-1.00) 10*3/uL Eosinophils # (0.04-0.35) 10*3/uL Basophils # (0.00-0.10) 10*3/uL PT (10.0-12.5) sec INR (<1.2) APTT (22.0-30.0) sec Sodium (137-145) mmol/L Potassium (3.5-5.1) mmol/L Chloride (98-107) mmol/L Carbon Dioxide (22-30) mmol/L Anion Gap mmol/L BUN (7-17) mg/dL Creatinine (0.52-1.04) mg/dL Est GFR (CKD-EPI)AfAm (>60 ml/min/1.73 sqM) Est GFR (CKD-EPI)NonAf (>60 ml/min/1.73 sqM) Glucose (74-99) mg/dL Plasma Lactic Acid Man 1.2 (0.7-2.0) mmol/L Calcium (8.4-10.2) mg/dL Magnesium (1.6-2.3) mg/dL Total Bilirubin (0.2-1.3) mg/dL AST (14-36) U/L ALT (4-34) U/L Alkaline Phosphatase (38-126) U/L Total Protein (6.3-8.2) g/dL Albumin (3.5-5.0) g/dL Lipase (23-300) U/L Disposition Clinical Impression: Infectious diarrhea Disposition: HOME SELF-CARE Condition: Stable Instructions (If sedation given, give patient instructions): Traveler's Diarrhea (ED) Additional Instructions: Take Bactrim as prescribed. Use Zofran as needed for nausea/vomiting. Please return to the Emergency Department if symptoms worsen or any other concerns. Prescriptions: Sulfamethox-Tmp 800-160Mg [Bactrim Ds] 1 each PO Q12HR 7 Days #14 tab Ondansetron Odt [Zofran Odt] 4 mg PO Q8HR PRN #10 tab PRN Reason: Nausea Is patient prescribed a controlled substance at d/c from ED?: No Referrals: Jeff Roberto MD [Primary Care Provider] - 1-2 days Time of Disposition: 03:58
[2025-01-16 22:14] LABS: Basophils # (A) 0.05 10*3/uL (0.00-0.10); Basophils % (A) 0.5 %; Eosinophils # (A) 0.12 10*3/uL (0.04-0.35); Eosinophils % (A) 1.1 %; HCT 40.4 % (37.2-46.3); HGB 13.8 g/dL (12.0-15.0); Lymphocytes # (A) 3.42 10*3/uL (0.90-5.00); Lymphocytes % (A) 32.7 %; MCH 32.2 pg (27.0-32.0); MCHC 34.2 g/dL (32.0-37.0); MCV 94.2 fL (80.0-97.0); Monocytes # (A) 0.58 10*3/uL (0.20-1.00); Monocytes % (A) 5.5 %; Neutrophils # (A) 6.27 10*3/uL (1.80-7.70); Neutrophils % (A) 59.9 %; Platelet Count 261 10*3/uL (140-440); RBC 4.29 10*6/uL (4.10-5.20); RDW 12.0 % (11.5-14.5); WBC 10.47 10*3/uL (4.50-10.00)
[2025-01-16 22:31] LABS: INR 1.0 (<1.2); Partial Thromboplastin Time 23.5 sec (22.0-30.0); Prothrombin Time 10.9 sec (10.0-12.5)
[2025-01-16 22:40] LABS: ALT 17 U/L (4-34); AST 26 U/L (14-36); African American GFR (CKD) >90 (>60 ml/min/1.73 sqM); Albumin 4.7 g/dL (3.5-5.0); Alkaline Phosphatase 50 U/L (38-126); Anion Gap 15 mmol/L; Blood Urea Nitrogen 2 mg/dL (7-17); Calcium 10.4 mg/dL (8.4-10.2); Carbon Dioxide 19 mmol/L (22-30); Chloride 106 mmol/L (98-107); Glucose 86 mg/dL (74-99); Lipase 39 U/L (23-300); Magnesium 1.7 mg/dL (1.6-2.3); Non-African American GFR(CKD) >90 (>60 ml/min/1.73 sqM); Potassium 4.2 mmol/L (3.5-5.1); Sodium 140 mmol/L (137-145); Total Protein 7.3 g/dL (6.3-8.2)
[2025-01-17] MEDS: ONDANSETRON 4 MG/2 ML VIAL IVP STA (01:32)
[2025-01-17] MEDS: SODIUM CHLORIDE 0.9% 1,000 ML IV STA (01:33)
[2025-01-17] MEDS: DICYCLOMINE 20 MG TAB PO STA (01:33)
[2025-01-17 03:53] VITALS: BP 112/72; PULSE 72; RESP 20
[2025-01-17] MEDS: METOCLOPRAMIDE 5 MG/ML 2 ML VIAL IVP STA (03:54)
[2025-01-17] MEDS: SULFAMETHOX-TMP 800-160MG 1 EACH TAB PO STA (04:08)
[2025-01-17] MEDS: ONDANSETRON 4 MG ODT STARTER PACK 2 TAB BTL PO STA (04:09)
--- NOTE | 2025-01-17 04:10 | XR ---
EXAM: XR Abdomen, 1 View CLINICAL HISTORY: Vomiting with blood in stool. Abdominal pain TECHNIQUE: Frontal supine view of the abdomen/pelvis. COMPARISON: CT abdomen and pelvis from 04/23/2024 FINDINGS: Gastrointestinal tract: Nonspecific bowel gas pattern. No dilation. Bones/joints: No acute findings. IMPRESSION: Nonspecific bowel gas pattern.
== END 2025-01-17 04:14 | disposition home or self-care (01) ==
LOC: EC 21:21
DX: A09 Infectious gastroenteritis and colitis, unspecified (principal); F17.200 Nicotine dependence, unspecified, uncomplicated; Z88.0 Allergy status to penicillin
CPT/HCPCS: 36415; 80053; 83605; 83690; 83735; 85025; 85610; 85730; 74018; 99285; 96374; 96375; 96361 ×2; J2765; J2405; S0119